=== PATIENT | male | born 1970 | race Caucasian/White ===

== ENCOUNTER 2018-05-03 08:29 | Outpatient (CLI) | payer OTHER | END 2018-05-03 08:30 | LOC: LAB 08:29 | PROVIDERS: ATTEND Family Medicine | DX: Z00.00 Encounter for general adult medical examination without abnormal findings (principal); D50.0 Iron deficiency anemia secondary to blood loss (chronic) ==

== ENCOUNTER 2018-06-17 15:03 | Outpatient (CLI) | payer OTHER ==
--- NOTE | 2018-06-17 19:21 | MRI ---
MR OF THE PELVIS WITHOUT CONTRAST: 06/17/18 INDICATION: Right hip pain with radiation into the right groin and hamstring region for one year. History of hip injection with relief. Patient states that this is an on and off recurrence of pain but denies any kn own injury or trauma. Patient is very active and plays soccer. TECHNIQUE: Multiplanar and multisequence MR images were obtained of the pelvis and right hip without IV contrast . No radiographic or MR comparisons are available. FINDINGS: There is hypertrophic changes seen surrounding the symphysis pubis consistent with osteitis pubis. Th ere is some edema underlying the subchondral bone of the pubic body bilaterally, right greater than l eft, with some extension of edema into the right inferior pubic ramus. There is no evidence of fluid undermining the rectus sheath-adductor longus aponeurotic complex to suggest the presence of a sports hernia. There is some mild edema involving the proximal aspect of the right abductor brevis musculat ure consisting with a grade I strain. The rectus sheath otherwise appears within normal limits. No il iopsoas or trochanteric bursitis is evident. The abductor minimus and medius tendons appear within no rmal limits. Hamstring origins are normal appearing. The visualized intrapelvic contents are unremark able. No acute fracture is evident. Small suspected subchondral cyst-like abnormality is seen involvi ng the right SI joint versus a small low grade chondroid lesion. This measures approximately 8 mm in size within the right ilium on image 33 of series 2. No paralabral cyst is evident. No joint effusion is noted. No lymphadenopathy is present. IMPRESSION: 1. 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 No visible fracture line is evident. 2. Mild grade I strain of the proximal right abductor brevis musculature. 3. Small T2 hyperintense lesion seen within the right ilium adjacent to the right SI joint may reflect a small subchondral cyst-like abnormality or possibly slightly atypical bone hemangioma or po ssibly a small low grade chondroid lesion such as an enchondroma. There are no aggressive features ev ident associated with this lesion. POS: [facility]
== END 2018-06-17 15:04 | disposition home or self-care (01) ==
LOC: MRI 15:03
PROVIDERS: ATTEND Pediatrics Sports Medicine
DX: M79.651 Pain in right thigh (principal); R10.30 Lower abdominal pain, unspecified; S76.811A Strain of other specified muscles, fascia and tendons at thigh level, right thigh, initial encounter; M89.8X8 Other specified disorders of bone, other site
CPT/HCPCS: 72195